=== PATIENT | male | born 1985 | race American Indian/Alaskan Native ===

== ENCOUNTER 2021-01-05 01:32 | Emergency (ER) | payer SELFPAY ==
[2021-01-05 01:49] VITALS: BP 147/65
--- NOTE | 2021-01-05 09:20 | Electrocardiograph Report ---
[facility] Test Date: 2021-01-05 Test Time: 01:51:59 Pat Name: TARIQ CEE Department: Room: Gender: M Mechanical Engineering Director: KEMAR : 1985 Requested By: TERRELL ORTEGA Order Number: [id number] Reading MD: Yared Hutson Measurements Intervals [place] Rate: 77 P: 28 VA: 159 QRS: 43 QRSD: 78 T: 58 QT: 365 QTc: 413 Interpretive Statements Sinus rhythm No previous ECG available for comparison Electronically Signed On 01-05-2021 9:19:51 EDT by Yared Hutson
== END 2021-01-05 02:15 | disposition left against medical advice (07) ==
LOC: ED 01:32
DX: R07.89 Other chest pain (principal); M79.601 Pain in right arm; M79.602 Pain in left arm; Z53.21 Procedure and treatment not carried out due to patient leaving prior to being seen by health care provider
CPT/HCPCS: 93005

== ENCOUNTER 2021-06-11 12:27 | Emergency (ER) | payer SELFPAY ==
[2021-06-11 12:30] VITALS: BP 135/61
--- NOTE | 2021-06-11 12:48 | Emergency Department Report ---
ED ENT HPI - General Chief complaint: Dental/Oral Stated complaint: TOOTHACHE Time Seen by Provider: 06/11/21 12:36 Source: patient Mode of arrival: Ambulatory Limitations: No Limitations - History of Present Illness Initial comments: Patient is a 35-year-old male presents emergency room complaints of right upper and right lower dental pain that began 2 days ago. He states he last saw dentist over a year ago. He denies any fever, chills, vomiting, facial swelling, difficulty swallowing, difficulty breathing. Patient denies any past medical history. He denies any medication allergies. - Related Data Previous Rx's Medication Instructions Recorded Last Taken Type Chlorhexidine Mouthwash [Peridex] 15 ml MM BID #1 bottle 06/11/21 Unknown Rx Naproxen 375 mg PO BID 7 Days #14 tablet 06/11/21 Unknown Rx Penicillin V Potassium 500 mg PO QID 7 Days #28 tablet 06/11/21 Unknown Rx Allergies Allergy/AdvReac Type Severity Reaction Status Date / Time No Known Allergies Allergy Unverified 01/05/21 01:46 ED Dental HPI - General Chief complaint: Dental/Oral Stated complaint: TOOTHACHE Time Seen by Provider: 06/11/21 12:36 Source: patient Mode of arrival: Ambulatory Limitations: No Limitations - Related Data Previous Rx's Medication Instructions Recorded Last Taken Type Chlorhexidine Mouthwash [Peridex] 15 ml MM BID #1 bottle 06/11/21 Unknown Rx Naproxen 375 mg PO BID 7 Days #14 tablet 06/11/21 Unknown Rx Penicillin V Potassium 500 mg PO QID 7 Days #28 tablet 06/11/21 Unknown Rx Allergies Allergy/AdvReac Type Severity Reaction Status Date / Time No Known Allergies Allergy Unverified 01/05/21 01:46 ED Review of Systems ROS: Stated complaint: TOOTHACHE Other details as noted in HPI Comment: All other systems reviewed and negative ED Past Medical Hx - Past Medical History Hx Asthma: Yes - Surgical History Additional Surgical History: right foot surgery - Social History Smoking Status: Current Every Day Smoker Substance Use Type: Marijuana - Medications Home Medications: Home Medications Medication Instructions Recorded Confirmed Last Taken Type Chlorhexidine Mouthwash [Peridex] 15 ml MM BID #1 bottle 06/11/21 Unknown Rx Naproxen 375 mg PO BID 7 Days #14 tablet 06/11/21 Unknown Rx Penicillin V Potassium 500 mg PO QID 7 Days #28 tablet 06/11/21 Unknown Rx ED Physical Exam - General Limitations: No Limitations General appearance: alert, in no apparent distress - Head Head exam: Present: atraumatic, normocephalic - Eye Eye exam: Present: normal appearance - ENT ENT exam: Present: mucous membranes moist, other (mostly missing tooth from the right lower molar, mild edema of the gumline, no fluctuance, no facial edema, uvula is midline, no uvular edema, no tongue elevation, no muffled voice, no submandibular edema, no trismus) - Respiratory Respiratory exam: Absent: respiratory distress, accessory muscle use - Neurological Exam Neurological exam: Present: alert, oriented X3 - Psychiatric Psychiatric exam: Present: normal affect, normal mood - Skin Skin exam: Present: warm, dry, intact ED Course Vital Signs 06/11/21 12:29 Temperature 98.2 F Pulse Rate 57 L Respiratory 18 Rate Blood Pressure 135/61 O2 Sat by Pulse 100 Oximetry ED Medical Decision Making - Medical Decision Making Patient is a 35-year-old male presents emergency room complaints of right upper and right lower dental pain that began 2 days ago. He states he last saw dentist over a year ago. He denies any fever, chills, vomiting, facial swelling, difficulty swallowing, difficulty breathing. Patient denies any past medical history. He denies any medication allergies. Vitals are normal. On exam:mostly missing tooth from the right lower molar, mild edema of the gumline, no fluctuance, no facial edema, uvula is midline, no uvular edema, no tongue elevation, no muffled voice, no submandibular edema, no trismus. No significant dental abscess. no signs of facial cellulitis, facial abscess or Jerry's at this time. Patient given prescription for medication. Advised patient Please take medication as prescribed. Follow-up with a dentist. Return to emergency room for any new or worsening symptoms. Critical care attestation.: If time is entered above; I have spent that time in minutes in the direct care of this critically ill patient, excluding procedure time. ED Disposition Clinical Impression: Dentalgia, Cracked tooth, Dental caries Disposition: HOME / SELF CARE / HOMELESS Is pt being admited?: No Does the pt Need Aspirin: No Condition: Stable Additional Instructions: Please take medication as prescribed. Follow-up with a dentist. Return to emergency room for any new or worsening symptoms. Prescriptions: Naproxen 375 mg PO BID 7 Days #14 tablet Penicillin V Potassium 500 mg PO QID 7 Days #28 tablet Chlorhexidine Mouthwash [Peridex] 15 ml MM BID #1 bottle Referrals: [facility] [Outside] - 3-5 Days [facility] [Outside] - 3-5 Days Time of Disposition: 12:46 Print Language: GREEK
== END 2021-06-11 13:11 | disposition home or self-care (01) ==
LOC: ED 12:27
DX: K08.89 Other specified disorders of teeth and supporting structures (principal); K02.9 Dental caries, unspecified; K03.81 Cracked tooth; J45.909 Unspecified asthma, uncomplicated; F17.200 Nicotine dependence, unspecified, uncomplicated; F12.10 Cannabis abuse, uncomplicated; Z79.899 Other long term (current) drug therapy
CPT/HCPCS: 99281

== ENCOUNTER 2021-10-01 12:03 | Emergency (ER) | payer SELFPAY ==
[2021-10-01 13:14] VITALS: BP 117/62
== END 2021-10-01 14:00 | disposition left against medical advice (07) ==
LOC: ED 12:03
DX: K08.89 Other specified disorders of teeth and supporting structures (principal); M79.643 Pain in unspecified hand; Z53.21 Procedure and treatment not carried out due to patient leaving prior to being seen by health care provider